=== PATIENT | female | born 1970 | race Caucasian/White ===

== ENCOUNTER 2016-08-01 22:55 | Emergency (ER) | payer BC ==
[~2016-08-01] VITALS: Ht 167.6 cm; Wt 78.0 kg
[2016-08-01 23:10] VITALS: BP_SYST 144
[2016-08-01 23:41] LABS: BILIRUBIN,URINE NEGATIVE (NEGATIVE); BLOOD, URINE 2+ (NEGATIVE); COLOR,URINE YELLOW (YELLOW); GLUCOSE,URINE NEGATIVE (NEGATIVE); KETONES,URINE TRACE (NEGATIVE); LEUKOCYTE ESTERASE ,URINE 1+ (NEGATIVE); NITRITE, URINE NEGATIVE (NEGATIVE); PROTEIN URINE NEGATIVE (NEGATIVE); UROBILINOGEN,URINE 0.2 (0.2-1.0)
[2016-08-01 23:52] LABS: CLARITY/URINE SLIGHTLY CLOUDY (CLEAR)
[2016-08-01 23:54] LABS: BACTERIA,URINE FEW /HPF (None Seen); MUCUS,URINE 1+ /LPF (None Seen); WBC,URINE 20-50 /HPF (0-3)
--- NOTE | 2016-08-02 00:32 | NUR ---
Patient to ER bed 6 to gown for evaluation. Side rails up. Report given to TYREE EMERSON.
--- NOTE | 2016-08-02 00:35 | NUR ---
ER MD Mullen at bedside evaluating the patient
--- NOTE | 2016-08-02 00:38 | NUR ---
Patient to ER C/O lower back pain radiaitng to front epigastric 09/14. Also C/O mild nausea. Denies V/D/C, afebrile. AAOx4, unlabored breathing, no signs of acute distress.
--- NOTE | 2016-08-02 00:40 | NUR ---
# 20 gauge angiocath placed to left ac. Use of asceptic technique. Opsite placed over site. Blood return noted. Blood for lab drawn from site. Flushed with 10 cc of normal saline. No evidence of infiltration noted. Patient tolerated well.
[2016-08-02] MEDS ORDERED: KETOROLAC TROMETHAMINE 30 MG VIAL IVP ONE (00:45)
[2016-08-02 00:58] LABS: BASOPHILS # (AUTO) 0.1 K/uL (0.0-0.2); BASOPHILS % (AUTO) 0.6 % (0.0-2.0); EOSINOPHILS # (AUTO) 0.1 K/uL (0.0-0.4); EOSINOPHILS % (AUTO) 0.8 % (0.0-4.0); HEMATOCRIT 37.9 % (36-48); HEMOGLOBIN 12.8 g/dL (12.0-16.0); LYMPHOCYTES # (AUTO) 1.4 K/uL (1.0-5.5); LYMPHOCYTES % (AUTO) 14.2 % (20.5-51.5); MEAN CORPUSCULAR HEMOGLOBIN 31 pg (27-31); MEAN CORPUSCULAR HGB CONC 34 % (32-36); MEAN CORPUSCULAR VOLUME 92 fL (79.0-98.0); MONOCYTES # (AUTO) 0.7 K/uL (0.0-1.0); MONOCYTES % (AUTO) 6.6 % (1.7-9.3); NEUTROPHILS # (AUTO) 7.8 K/uL (1.8-7.7); NEUTROPHILS % (AUTO) 77.8 % (40.0-70.0); PLATELET COUNT (AUTO) 282 K/uL (130-430); RED BLOOD CELL COUNT(AUTO) 4.13 MIL/uL (4.2-6.2); RED CELL DISTRIBUTION WIDTH 12.3 % (9.0-15.0); WHITE BLOOD COUNT (AUTO) 10.1 K/uL (4.8-10.8)
[2016-08-02 01:07] LABS: CALCIUM 9.4 mg/dL (8.4-11.0); CREATININE 1.18 mg/dL (0.55-1.30); POTASSIUM 3.3 mmol/L (3.5-5.1)
[2016-08-02 01:12] LABS: ALBUMIN 4.4 g/dL (3.4-4.8); TOTAL BILIRUBIN 0.5 mg/dL (0.0-1.0); TOTAL PROTEIN, SERUM 7.9 g/dL (6.4-8.3)
--- NOTE | 2016-08-02 02:43 | NUR ---
Patient calm on gurney, awaiting test results. Denies pain at this time. VS WNL. Family at bedside.
--- NOTE | 2016-08-02 03:19 | NUR ---
ER MD Mullen at bedside discussing plan of care and discharge with patient.
[2016-08-02 03:40] VITALS: BP_SYST 131
--- NOTE | 2016-08-02 03:40 | NUR ---
Patient given written and verbal discharge instructions and verbalizes understanding. ER MD Mullen discussed with patient the results and treatment provided. Patient in stable condition. ID arm band removed. IV catheter removed intact and dressing applied, no active bleeding. Rx of norco, levaquin, zofran given. Patient educated on pain management and to follow up with PMD. Pain Scale 0/10. Opportunity for questions provided and answered.
== END 2016-08-02 03:40 | disposition home or self-care (01) ==
LOC: SED 22:55
DX: N23 Unspecified renal colic (principal); N30.90 Cystitis, unspecified without hematuria; K80.20 Calculus of gallbladder without cholecystitis without obstruction; R19.00 Intra-abdominal and pelvic swelling, mass and lump, unspecified site; Z88.6 Allergy status to analgesic agent; Z98.890 Other specified postprocedural states
CPT/HCPCS: 36415; 74176; 80053; 81000; 81025; 85025; 87086; 96374; 99285; J1885

== ENCOUNTER 2016-10-16 05:47 | Day surgery (SDC) | payer BC ==
[~2016-10-16] VITALS: Ht 167.6 cm; Wt 79.8 kg
[2016-10-16] MEDS ORDERED: CEFAZOLIN 1 GM IVPB PREMIX 50 ML IV ONE (07:00)
[2016-10-16] MEDS ORDERED: NS 1000 ML BAG IV ONE (07:30)
[2016-10-16] MEDS ORDERED: SEVOFLURANE 15 MIN GAS INH ONE (07:30)
[2016-10-16] MEDS ORDERED: PROPOFOL 200MG/ 20ML VIAL (DIPRIVAN) IV ONE (07:30)
[2016-10-16] MEDS ORDERED: LR 1,000 ML IV.SOLN IV ONE (07:30)
[2016-10-16] MEDS ORDERED: ONDANSETRON HCL 4 MG/2 ML VIAL IVP ONE (07:30)
[2016-10-16] MEDS ORDERED: GLYCOPYRROLATE 0.2 MG/ML VIAL IJ ONE (07:30)
[2016-10-16] MEDS ORDERED: fentaNYL CITRATE 250 MCG/5 ML AMP IV ONE (07:30)
[2016-10-16] MEDS ORDERED: ROCURONIUM BROMIDE 10 MG/ML (ZEMURON) IV ONE (07:30)
[2016-10-16] MEDS ORDERED: MIDAZOLAM HCL 5 MG/5 ML VIAL IVP ONE (07:30)
[2016-10-16] MEDS ORDERED: LR 1,000 ML IV SCH (08:33)
[2016-10-16] MEDS ORDERED: MORPHINE 2 MG/ML INJ. SYRINGE IVP PRN (08:45)
[2016-10-16] MEDS ORDERED: METOCLOPRAMIDE HCL 10 MG/2 ML VIAL IVP PRN (08:45)
[2016-10-16] MEDS ORDERED: MORPHINE 4 MG/ML INJ. SYRINGE IVP PRN ×3 (08:45→10:35)
[2016-10-16] MEDS ORDERED: D5/0.45 NS 1,000 ML IV SCH (09:01)
[2016-10-16] MEDS ORDERED: HYDROcodone/ACETAMIN 5-325 MG TAB (NORCO/ VICODIN) PO PRN ×2 (09:15)
[2016-10-16] MEDS ORDERED: HYDROmorphone 1 MG INJ. 1 MG/ML AMPUL IVP PRN (09:15)
[2016-10-16] MEDS ORDERED: MORPHINE 4 MG/ML INJ. SYRINGE ONE (09:23)
[2016-10-16 10:08] VITALS: BP_SYST 146
[2016-10-16] MEDS ORDERED: HYDROcodone/ACETAMIN 5-325 MG TAB (NORCO/ VICODIN) ONE (10:33)
== END 2016-10-16 12:35 | disposition home or self-care (01) ==
LOC: SMU 05:47 → SDS 05:47
PROVIDERS: ATTEND Colon & Rectal Surgery
DX: K80.10 Calculus of gallbladder with chronic cholecystitis without obstruction (principal); I10 Essential (primary) hypertension; Z98.890 Other specified postprocedural states; Z80.9 Family history of malignant neoplasm, unspecified; Z88.8 Allergy status to other drugs, medicaments and biological substances
CPT/HCPCS: 47563; 76000; 88304; C1727; C1758; J0690; J2250; J2270; J2405; J2704; J3010; J3490; J7030; J7120

== ENCOUNTER 2020-01-26 09:07 | Outpatient (CLI) | payer BC, OTHER ==
[~2020-01-26 09:07] MED LIST: LOSA25TA3 PO; TRIA1CAP53 PO
[2020-01-26] MEDS ORDERED: BARIUM SULFATE 135 ML SUSP.RECON (E-Z-HD) PO ONE (09:20)
== END 2020-01-26 19:45 | disposition home or self-care (01) ==
LOC: SRD 09:07
PROVIDERS: ATTEND Otolaryngology Plastic Surgery within the Head & Neck
DX: K21.9 Gastro-esophageal reflux disease without esophagitis (principal); R10.30 Lower abdominal pain, unspecified
CPT/HCPCS: 74220-TC